=== PATIENT | male | born 1990 | race Hispanic/Latino ===

== ENCOUNTER 2021-02-08 18:45 | Emergency (ER) | payer OTHER ==
[~2021-02-08] VITALS: Ht 188 cm; Wt 101.8 kg
[2021-02-08] MEDS ORDERED: MUCI600T31 PO (18:52)
[2021-02-08] MEDS ORDERED: ACET-683 PO (18:52)
[2021-02-08] MEDS ORDERED: methylPREDNISolone 125MG 2ML VIAL IV ONE (19:55)
[2021-02-08] MEDS ORDERED: NS 1,000 ML IV ONE (19:55)
[2021-02-08 20:41] LABS: BASO # 0.1 10^3/uL (0.0-0.2); BASO % 0.5 % (0.0-1.0); EOS % 9.7 % (0.0-3.0); HEMATOCRIT 52.9 % (42.0-52.0); HEMOGLOBIN 17.5 g/dl (13.5-17.5); LYMPH # 1.7 10^3/uL (1.5-5.0); LYMPH % 16.5 % (24.0-44.0); MEAN CORPUSCULAR HEMOGLOBIN 29.4 pg (27.0-33.0); MEAN CORPUSCULAR HGB CONC 33.1 g/dl (32.0-36.5); MEAN CORPUSCULAR VOLUME 88.9 fl (80.0-96.0); MONO # 0.9 10^3/uL (0.0-0.8); MONO % 8.7 % (2.0-8.0); NEUTROPHILS # 6.5 10^3/uL (1.5-8.5); NEUTROPHILS % 64.3 % (36.0-66.0); PLATELET COUNT, AUTOMATED 248 10^3/uL (150-450); RED BLOOD COUNT 5.95 10^6/uL (4.30-6.10); WHITE BLOOD COUNT 10.1 10^3/uL (4.0-10.0)
[2021-02-08 20:50] LABS: RSV AMPLIFICATION NEGATIVE (NEGATIVE)
[2021-02-08] MEDS: ALBUTEROL 90 MCG/ACT 8GM HFA INHALER INH SCH ×3 (20:51→21:46)
[2021-02-08 20:59] LABS: ERYTHROCYTE SEDIMENTATION RATE 6 mm/hr (0-15)
--- NOTE | 2021-02-08 21:45 | REPVR ---
PROCEDURE INFORMATION: Exam: XR Chest Exam date and time: 02/08/2021 9:23 PM Age: 30 years old Clinical indication: Cough and shortness of breath; Additional info: Cough, SOB, wheezes throughout TECHNIQUE: Imaging protocol: XR of the chest Views: 1 view. COMPARISON: No relevant prior studies available. FINDINGS: Lungs: Unremarkable. No consolidation. Pleural spaces: Unremarkable. No pleural effusion. No pneumothorax. Heart/Mediastinum: Unremarkable. No cardiomegaly. Bones/joints: Unremarkable. IMPRESSION: No acute findings. Electronically signed by: Barbara Barrow On 02/08/2021 21:45:27 PM
[2021-02-08] MEDS ORDERED: PRED20TA PO (22:46)
[2021-02-08] MEDS ORDERED: ALBU83IN NEB (22:46)
[2021-02-08] MEDS ORDERED: PROAAER10 INH (22:46)
[2021-02-08] MEDS ORDERED: CLEV1MIS25 XX (22:46)
[2021-02-08 22:58] VITALS: BP 137/75
== END 2021-02-08 23:01 | disposition home or self-care (01) ==
LOC: M ED 18:45
DX: R06.2 Wheezing (principal); R06.02 Shortness of breath; R05 Cough; J45.909 Unspecified asthma, uncomplicated; Z79.51 Long term (current) use of inhaled steroids; Z79.899 Other long term (current) drug therapy
CPT/HCPCS: 71045; 80047; 85025; 85652; 86140; 87631; 94640; 96361; 96374; 99284; J2930

== ENCOUNTER → 2022-02-15 | Outpatient (REF) ==
[~2022-02-15] MED LIST: ACET-683 PO; ALBU83IN NEB; CLEV1MIS25 XX; MUCI600T31 PO; PRED20TA PO; PROAAER10 INH
== END ==
LOC: M PLAIMG 09:44
PROVIDERS: ATTEND Internal Medicine
DX: R06.02 Shortness of breath (principal); M79.672 Pain in left foot